=== PATIENT | male | born 1955 | race Caucasian/White ===

== ENCOUNTER 2020-08-10 08:34 | Outpatient (REF) | payer BC, SELFPAY ==
--- NOTE | ~2020-08-10 | XR_ITS ---
EXAMINATION: KNEE X-RAY CLINICAL INFORMATION: Pain COMPARISON: Previous x-ray January 2013 TECHNIQUE: Standing AP view of both knees and lateral and sunrise view of the right knee FINDINGS: Right: There is mild varus angulation at the right knee joint. Bone alignment is otherwise normal. No fracture or dislocation is seen. There is joint space narrowing at the medial femoral tibial joint. There are small osteophytes at the patellofemoral joint. There is a small joint effusion. Standing AP view of the left knee is unremarkable. XR/XR knee standing BI IMPRESSION: Mild right knee arthritis.
--- NOTE | ~2020-08-10 | XR_ITS ---
EXAMINATION: KNEE X-RAY CLINICAL INFORMATION: Pain COMPARISON: Previous x-ray January 2013 TECHNIQUE: Standing AP view of both knees and lateral and sunrise view of the right knee FINDINGS: Right: There is mild varus angulation at the right knee joint. Bone alignment is otherwise normal. No fracture or dislocation is seen. There is joint space narrowing at the medial femoral tibial joint. There are small osteophytes at the patellofemoral joint. There is a small joint effusion. Standing AP view of the left knee is unremarkable. XR/XR knee RT 2V IMPRESSION: Mild right knee arthritis.
== END 2020-08-10 08:35 | disposition home or self-care (01) ==
LOC: HO.HOSX 08:34
PROVIDERS: Visit Provider Orthopaedic Surgery
DX: M17.11 Unilateral primary osteoarthritis, right knee (principal); M25.561 Pain in right knee; M25.562 Pain in left knee
CPT/HCPCS: 73560; 73565

== ENCOUNTER → 2021-06-09 10:53 | Outpatient (BNVA) | payer MEDICARE, SELFPAY | PROVIDERS: PCP Internal Medicine; Visit Provider Orthopaedic Surgery | DX: M76.50 Patellar tendinitis, unspecified knee (principal); R26.9 Unspecified abnormalities of gait and mobility | CPT/HCPCS: 20610; J1100 ==

== ENCOUNTER 2021-07-12 11:00 | Outpatient (RCR) | payer MEDICARE, SELFPAY ==
--- NOTE | 2021-06-17 12:36 | MHC.PT.EP ---
[facility] [place] Office [place] Office [place] Office [address] Raoul Sanchez [address] [phone] F: [phone] F: [phone] F: [phone] F: [phone] Physical Therapy Plan of Care Date of Evaluation: Date of Surgery: n/a Diagnosis: unilateral OA R knee patellar tendinitis Assessment: Patient is a 66 year old male presenting to PT with complaints of pain in his R knee and L hip. Pt reports onset of pain began in the knee 1 year ago and hip 2 years ago due to insidious. He presents today with impairments in pain, knee ROM, hip strength, and quad muscle length. 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 Pt expresses mcfp goal of reducing pain, and is motivated to work towards this in PT. Clinical presentation today is most consistent with signs and sx associated with possible arthritis and tendonitis and pt will benefit from skilled PT to address the following problems and impairments noted upon evaluation: pain, knee ROM, hip strength, and quad muscle length. These problems limit the patient with the following functional activities: running, ambulation, stair negotiation, and transfers. The prescribed treatment plan of care is medically necessary. 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 Pt was educated on HEP, role of PT, prognosis, POC. Frequency and Duration: The patient will be seen 2 x week x 4 weeks Short Term Goals: Pt will demonstrate symmetrical knee ROM B in 2 weeks. Pt will demonstrate improved hip strength by 1/3 MMT for improved lumbopelvic stability in 2 weeks. Pt will demonstrate improved quad muscle length as evidence by negative prone quad test in 2 weeks. Jail Goals: Pt will demonstrate improved LEFI score by 9 points for improved functional mobility in 4 weeks. Pt will demonstrate ability to run with min to no pain in 4 weeks for improved tolerance to role as a ref. Pt will demonstrate ability to negotiate stairs with min to no pain in 4 weeks for improved access to his home. Treatment Plan: Modalities to reduce pain, spasms and effusion. Manual therapy to restore motion and function. Therapeutic exercise to improve strength and flexibility. Neuromuscular re-education for posture and balance. Therapeutic activities to return to functional activities of daily living. Electronically signed by: Ally Pete PT, DPT, ATC Please sign and return to therapist. Thank you for your referral.
--- NOTE | 2021-08-16 09:10 | MHC.PT.DC ---
[facility] [place] Office [place] Office [place] Office [address] Raoul Sanchez [address] [facility] [phone] F: [phone] F: [phone] F: [phone] F: [phone] Physical Therapy Discharge Report Diagnosis: unilateral OA R knee patellar tendinitis Date of Surgery: n/a Date of Evaluation: 06/17/21 Date of Discharge: 08/16/21 Treatments to Date: 5 Cancellations to Date: 0 No Shows to Date: 0 Discharge Status: Achieved Goals Improved Function Independent with HEP Discharge Summary: Pt has not reached out in >30 days and at last session plan was to d/c after 30 days if nothing came up. Electronically signed by: Ally Pete, PT, DPT, ATC Please sign and return to therapist. Thank you for your referral.
== END 2021-08-16 09:11 | disposition home or self-care (01) ==
LOC: HO.PTCHIC 11:00
PROVIDERS: PCP Orthopaedic Surgery; Visit Provider Internal Medicine
DX: M17.11 Unilateral primary osteoarthritis, right knee (principal); M76.50 Patellar tendinitis, unspecified knee; R26.9 Unspecified abnormalities of gait and mobility
CPT/HCPCS: 97110; 97140; 97161

== ENCOUNTER 2021-10-05 21:04 | Emergency (ER) | payer MEDICARE, SELFPAY ==
[2021-10-05 21:08] VITALS: BP 138/84; PULSE 78; RESP 18; TEMP 37.2; O2SAT 96; BMI 26.4
--- NOTE | 2021-10-05 21:29 | ED.GENADULT ---
HPI - General Adult General Chief complaint: Recheck/Abnormal Lab/Rx Stated complaint: right arm sharp pain and a red line up arm Time Seen by Provider: 10/05/21 21:29 Source: patient Mode of arrival: ambulatory Limitations: no limitations History of Present Illness HPI narrative: Patient is a 66 year old male presenting to the emergency department today with right upper arm redness. Patient states that on Sunday of this week, he got blood drawn out of his right AC and now has a red streak going up his right arm. Patient denies any dizziness, lightheadedness, abdominal pain, nausea, vomiting, fever, chills, blurry vision, double vision, loss of vision, chest pain, difficulty breathing, shortness of breath, back pain, night sweats, pain with urination, increased urinary frequency, increased urinary urgency, blood in his urine or stool, syncope or a near syncopal episode, recent trauma or falls, bowel incontinence, bladder incontinence, bowel retention, bladder retention, or any other complaints at this time. Onset (ago): day(s) Location: right and upper extremity Radiation: non-radiation Severity: mild Severity scale (1-10): 1 Quality: dull Pain Consistency: constant Relieving factors: none Exacerbating factors: none Associated symptoms: denies other symptoms Treatments prior to arrival: none Related Data Home Medications Medication Instructions Recorded Confirmed sertraline 50 mg tablet mg PO 08/10/20 simvastatin 40 mg tablet 40 mg PO BEDTIME 08/10/20 triamcinolone acetonide 0.1 % PO BID 08/10/20 dental paste Allergies Allergy/AdvReac Type Severity Reaction Status Date / Time No Known Allergies Allergy Mild NKA Unverified 08/10/20 11:18 Review of Systems Constitutional: Constitutional: Reports no additional constitutional complaints, Denies chills, Denies fever(s) and Denies night sweats Eyes: Eyes: Reports no additional eye complaints, Denies blurry vision, Denies change in vision, Denies diplopia, Denies eye discharge, Denies loss of vision and Denies eye pain ENT: Denies dizziness Cardiovascular: Cardiovascular: Reports no additional cardiovascular complaints, Denies chest pain, Denies lightheadedness, Denies Loss of Consciousness and Denies dyspnea Respiratory: Respiratory: Reports no additional respiratory complaints and Denies dyspnea Gastrointestinal: Gastrointestinal: Reports no additional gastrointestinal complaints, Denies abdominal pain, Denies melena, Denies hematochezia, Denies change in bowel habits and Denies change in stool character Genitourinary: Genitourinary: Reports no additional male genitourinary complaints, Denies hematuria, Denies oliguria, Denies difficulty urinating, Denies dysuria, Denies urinary frequency, Denies urinary hesitancy, Denies urinary incontinence and Denies urinary urgency Musculoskeletal: Musculoskeletal: Reports no additional musculoskeletal complaints, Denies numbness and Denies tingling Neurologic: Denies dizziness, Denies loss of vision, Denies numbness and Denies tingling Psychiatric: Psychiatric: Reports no additional psychiatric complaints Endocrine: Endocrine: Reports no additional endocrine complaints Hematologic/Lymphatic: Hematologic/Lymphatic: Reports no additional hematologic/lymphatic complaints Allergic/Immunologic: Allergic/Immunologic: Reports no additional allergic/immunologic complaints [facility] Past Medical History Attestation statement: The following information was validated with the patient. Source: old records reviewed Medical History History of sarcoma Social History Social History Alcohol intake: current Alcohol intake frequency: holidays/special occasions only Advance Directives: No Advance Directives Information Provided: No Current occupational status: retired Current occupation: right handed Gender identity: Male Physical Exam ED Vital Signs: Vital Signs - 24 hr 10/05/21 21:08 Temperature 98.9 F Pulse Rate 78 Respiratory Rate 18 Blood Pressure 138/84 Pulse Oximetry 96 Oxygen Delivery Method Room Air BMI result Body Mass Index 26.4 Const General: cooperative, no acute distress, alert and awake Nutritional Appearance: well nourished Orientation/consciousness: patient oriented x3 Limitations: no limitations [facility] Head: Yes normal to inspection and Yes atraumatic Ears: hearing grossly normal bilaterally and external ears normal General nose exam: Normal external nose present, no nasal discharge noted and no epistaxis Face and sinus: Yes normal facial exam, No abrasion and No laceration Mouth: Normal oral and palatal mucosa present, no drooling and no muffled voice Eyes General: appearance normal, both eyes and all related structures Periorbital: periorbital findings normal Eyelids: Yes eyelids normal Conjunctivae: conjunctivae normal Pupils: Equal, round and reactive pupils present EOM: EOMs intact bilaterally Neck Neck: Yes normal visual inspection, Yes full ROM and Yes no lymphadenopathy Chest Chest palpation & inspection: normal inspection of the chest Resp Effort & Inspection: normal respiratory effort and able to speak in complete sentences Auscultation: clear to auscultation bilaterally Cardio Rate: regular rate Rhythm: regular rhythm GI Inspection: Yes normal to inspection Skin Other: minimal bruising to the right AC with erythema following along a vein but surrounding warmth or redness Neuro General: patient oriented x3 and moves all extremities Cranial nerves: Yes Equal, round and reactive pupils present Cognition (Neuro): normal cognition Motor exam (neuro): 5/5 motor strength present throughout Sensory Exam: Normal double simultaneous stimulation for sensation Coordination: [id number] test normal Extrem General: Yes normal to inspection, Yes full ROM and Yes capillary refill normal Psych Appearance: grossly normal Mental Status: mental status grossly normal Affect: normal affect Attitude: cooperative Thought process: Normal thought process present Thought content: Normal thought content present Insight: Good insight present (Psych) Medical Decision Making MDM Narrative Medical decision making narrative: Patient is a 66 year old male presenting to the emergency department today with right upper arm redness. Patient's physical exam was as listed previously in this chart. Patient's physical examination was consistent with a superficial phlebitis. I explained my physical exam findings to the patient. I answered all questions asked by the patient. I stressed the importance of the patient taking his medication as prescribed. I stressed the importance of the patient following up with his primary care provider. I stressed the importance of the patient returning to the emergency department immediately if his symptoms were to worsen or if he were to develop any dizziness, shortness of breath, difficulty breathing, chest pain, blurry vision, loss of vision, nausea, vomiting, abdominal pain, fever, chills, back pain, or any other complaints. Patient verbalized agreement and understanding with this treatment plan and discharge. Differential Diagnosis Differential Diagnosis: phlebitis Medical Records Medical records reviewed: Yes I reviewed the patient's medical records. Discharge Plan Discharge Clinical Impression: Phlebitis, superficial Patient Disposition: Home, Self-Care Instructions: Phlebitis (ED) Additional Instructions: Follow up with your primary care provider. Return to the emergency department immediately if your symptoms worsen or if you develop any dizziness, shortness of breath, difficulty breathing, chest pain, blurry vision, loss of vision, nausea, vomiting, abdominal pain, fever, chills, back pain, or any other complaints. Prescriptions: No Action simvastatin 40 mg tablet 40 mg PO BEDTIME sertraline 50 mg tablet PO triamcinolone acetonide 0.1 % paste PO BID Referrals: Fer Yoon MD [Primary Care Provider] - Interventions: ED Discharge Assessment Last Done: 10/05/21 22:47 Discharge Date/Time: 10/05/21 22:48 Print Language: Congolese
== END 2021-10-05 22:48 | disposition home or self-care (01) ==
PROVIDERS: Emergency Provider Internal Medicine; PCP Internal Medicine
DX: I80.8 Phlebitis and thrombophlebitis of other sites (principal); M79.621 Pain in right upper arm
CPT/HCPCS: 99282; 99283